=== PATIENT | female | born 1995 | race Caucasian/White ===

== ENCOUNTER 2019-10-16 21:53 | Emergency (ER) | payer OTHER, SELFPAY ==
[2019-10-16 21:59] VITALS: BP 166/84; PULSE 94; RESP 16; TEMP 37; O2SAT 100; BMI 38.3
[2019-10-16 22:01] VITALS: PULSE 90; O2SAT 100
--- NOTE | 2019-10-16 22:15 | ED_ITS ---
HPI - General Chief complaint: OB/Uterine Contractions Stated complaint: miscarriage Time Seen by Provider: 10/16/19 22:15 Source: patient Mode of arrival: Ambulatory Limitations: no limitations History of Present Illness HPI Narrative: 24-year-old at 6 weeks by LMP was in Sunday and had vaginal spotting and mild cramping earlier today. She was seen in the emergency room in Sunday but ultrasound was not available so she came to [place] for further care. She is planning to see Dr. Maravilla for her 1st OB appointment next week. She has otherwise been feeling well without fever, cough, chills, abdominal pain, dysuria or constipation. She notes that she has not had enough bleeding or needed to change her pad for at least the last 4 hours but is noting slightly more pelvic cramps Review of Systems Review of Systems Narrative: Remainder of review of systems including constitutional, ENT, cardiovascular, respiratory, GI, , musculoskeletal, skin, neurologic and psychiatric systems reviewed and are unremarkable except as noted in HPI. Exam Narrative Exam Narrative: General: Healthy appearing, in no acute distress. Able to give a complete and coherent history. Well-nourished well-developed HEENT: Moist mucous membranes, normal sclera with reactive pupils, Respiratory: Lungs are clear to auscultation, no wheezing no rales no rhonchi. Full and symmetrical air movement Cardiac: Regular rate and rhythm no murmurs no bruits Abdomen: Soft nontender good bowel tones, no flank pain Skin: Warm and dry, no rashes Neurologic: Grossly neurologically intact with no obvious asymmetries or abnormalities Psych: Cooperative, appropriate insight and affect Bedside ultrasound shows 2 intrauterine gestational sacs both with heart flicker noted. Upper sac measuring at 6.4 days gestational age and lower sac measuring at 6.3 days gestational age. Initial Vital Signs Initial Vital Signs: Vital Signs Temperature 98.6 F 10/16/19 21:59 Pulse Rate 94 H 10/16/19 21:59 Respiratory Rate 16 10/16/19 21:59 Blood Pressure 166/84 H 10/16/19 21:59 Pulse Oximetry 100 10/16/19 21:59 Course Orders Ordered: ED Orders 10/16/19 22:47 Complete Blood Count AUTO DIFF Stat Comprehensive Metabolic Panel Stat HCG Quantitative /Beta subunit Stat 10/16/19 23:30 Urinalysis and Microscopic Stat Vital Signs Vital signs: Vital Signs - 8 hr 10/16/19 21:59 10/16/19 22:01 10/16/19 22:30 Temperature 98.6 F Pulse Rate 94 H 90 103 H Respiratory Rate 16 Blood Pressure 166/84 H Pulse Oximetry 100 100 100 10/16/19 22:31 10/16/19 23:00 Temperature Pulse Rate 111 H 100 H Respiratory Rate Blood Pressure 137/64 Pulse Oximetry 100 98 MDM - OB/Uterine Contractions Lab Data Attestation: I reviewed the patient's lab results. Result diagrams: 10/16/19 22:47 10/16/19 22:47 Labs: Lab Results 10/16/19 10/16/19 10/16/19 Range/Units 22:47 22:47 22:47 WBC 10.4 (4.5-11.0) X10^3/uL RBC 4.02 (4.0-5.2) X10^6/uL Hgb 12.6 (12.0-16.0) g/dL Hct 36.2 (36-46) % MCV 90.1 (80-100) fL MCH 31.3 (26-34) PG MCHC 34.7 (30-36) % RDW 12.7 (11.6-14.8) % Plt Count 282 (150-400) X10^3/uL Neut % (Auto) 67.6 (50-75) % Lymph % (Auto) 21.5 L (25-40) % [place] % (Auto) 8.9 (3-14) % Eos % (Auto) 1.3 L (2-4) % Baso % (Auto) 0.7 (0-2) % Neut # (Auto) 7000 (6472-1453) /uL Lymph # (Auto) 2200 (0892-2050) /uL [place] # (Auto) 900 (0-900) /uL Eos # (Auto) 100 (0-450) /uL Baso # (Auto) 100 (0-100) /uL Sodium 135 L (137-145) mmol/L Potassium 4.3 (3.4-5.1) mmol/L Chloride 104 (98-107) mmol/L Carbon Dioxide 26 (22-32) mmol/L BUN 9 (7-17) mg/dL Creatinine 0.56 (0.52-1.04) mg/dL Estimated GFR > 60.0 (>60) mL/min BUN/Creatinine Ratio 16.1 (6-22) Glucose 102 H (70-100) mg/dL Calcium 9.2 (8.4-10.2) mg/dL Total Bilirubin 0.5 (0.2-1.3) mg/dL AST 45 H (14-36) IU/L ALT 54 H (<35) IU/L Alkaline Phosphatase 57 (38-126) U/L Total Protein 7.0 (6.3-8.2) g/dL Albumin 4.1 (3.5-5.0) g/dL Globulin 2.9 (1.7-4.1) g/dL Albumin/Globulin Ratio 1.4 (1.0-2.8) HCG, Quant 34000 mIU/mL Urine Color Urine Appearance Urine pH (4.5-8.0) Ur Specific [place] (1.000-1.035) Urine Protein (Negative) Urine Glucose (UA) (Negative) g/dL Urine Ketones (NEGATIVE) Urine Occult Blood (Negative) Urine Nitrate (Negative) Urine Bilirubin (NEGATIVE) Urine Urobilinogen (0.2) E.U./dL Ur Leukocyte Esterase (NEGATIVE) Urine RBC (0-5/HPF) Urine WBC (0-5/HPF) Urine Bacteria (None) Ur Culture Indicated? Micro UA Comment 10/16/19 Range/Units 23:30 WBC (4.5-11.0) X10^3/uL RBC (4.0-5.2) X10^6/uL Hgb (12.0-16.0) g/dL Hct (36-46) % MCV (80-100) fL MCH (26-34) PG MCHC (30-36) % RDW (11.6-14.8) % Plt Count (150-400) X10^3/uL Neut % (Auto) (50-75) % Lymph % (Auto) (25-40) % [place] % (Auto) (3-14) % Eos % (Auto) (2-4) % Baso % (Auto) (0-2) % Neut # (Auto) (6183-2155) /uL Lymph # (Auto) (8787-8545) /uL [place] # (Auto) (0-900) /uL Eos # (Auto) (0-450) /uL Baso # (Auto) (0-100) /uL Sodium (137-145) mmol/L Potassium (3.4-5.1) mmol/L Chloride (98-107) mmol/L Carbon Dioxide (22-32) mmol/L BUN (7-17) mg/dL Creatinine (0.52-1.04) mg/dL Estimated GFR (>60) mL/min BUN/Creatinine Ratio (6-22) Glucose (70-100) mg/dL Calcium (8.4-10.2) mg/dL Total Bilirubin (0.2-1.3) mg/dL AST (14-36) IU/L ALT (<35) IU/L Alkaline Phosphatase (38-126) U/L Total Protein (6.3-8.2) g/dL Albumin (3.5-5.0) g/dL Globulin (1.7-4.1) g/dL Albumin/Globulin Ratio (1.0-2.8) HCG, Quant mIU/mL Urine Color Yellow Urine Appearance Slightly cloudy Urine pH 6.0 (4.5-8.0) Ur Specific [place] 1.025 (1.000-1.035) Urine Protein Negative (Negative) Urine Glucose (UA) Negative (Negative) g/dL Urine Ketones 2+ H (NEGATIVE) Urine Occult Blood 3+ H (Negative) Urine Nitrate Negative (Negative) Urine Bilirubin Negative (NEGATIVE) Urine Urobilinogen 0.2 (0.2) E.U./dL Ur Leukocyte Esterase Negative (NEGATIVE) Urine RBC 1-5/hpf (0-5/HPF) Urine WBC None seen (0-5/HPF) Urine Bacteria Few (2-10) H (None) Ur Culture Indicated? Cult not indicated Micro UA Comment * MDM Narrative Medical decision making narrative: 24-year-old presents with spotting and increasing cramping. Bedside ultrasound suggests two viable fetuses, both intrauterine at 6.3-6.4 weeks. Quantitative hCG is consistent with that picture. Patient is discharged home. Recommended follow-up hCG in 3 days and that she keep her appointment with Dr. Maravilla next week. Need to have a more formal ultrasound with transvaginal probe to confirm presence or absence of two gestati onal sacs. Discharge Plan Departure Patient Disposition: Home Clinical Impression: Threatened Instructions: DI for Threatened Activity Restrictions/Additional Instructions: Thank you for coming in today. Your Blood work was reassuring and the hormone, hCG was appropriately elevated at 13,169. With any bleeding or cramping we always worry about miscarriage however it is also very common to have bleeding and cramping early in her . Is on ultrasound in the emergency department it did appear that there were 2 gestational sacs both with different heartbeats suggesting twins. This will definitely need to be confirmed and I encourage you to keep your formal OB ultrasound scheduled for later today Please follow-up with Dr. Maravilla. I would recommend that you have a repeat hCG test done on October 19 if you are continuing to have bleeding and cramping. I wish you the best Referrals: Verónica Maravilla MD [Physician] -
[2019-10-16 22:30] VITALS: PULSE 103; O2SAT 100
[2019-10-16 22:31] VITALS: BP 137/64; PULSE 111; O2SAT 100
--- NOTE | 2019-10-16 22:56 | PC.NURSE ---
PT states 7 weeks spotting and mild cramping today, was seen at [facility] told to come to ER for US. Denies needing to change pad for past 4 hours and states is nauseated. , has appt with Dr. Maravilla next week.
[2019-10-16 23:00] VITALS: PULSE 100; O2SAT 98
[2019-10-16 23:01] LABS: Add Manual Diff / Slide Review NO; Basophils Absolute Auto 100 /uL (0-100); Basophils Percent Auto 0.7 % (0-2); Eosinophils Absolute Auto 100 /uL (0-450); Eosinophils Percent Auto 1.3 % (2-4); Hematocrit 36.2 % (36-46); Hemoglobin 12.6 g/dL (12.0-16.0); Lymphocytes Absolute Auto 2200 /uL (1100-4500); Lymphocytes Percent Auto 21.5 % (25-40); Mean Corpuscular HGB Conc 34.7 % (30-36); Mean Corpuscular Hemoglobin 31.3 PG (26-34); Mean Corpuscular Volume 90.1 fL (80-100); Monocytes Absolute Auto 900 /uL (0-900); Monocytes Percent Auto 8.9 % (3-14); Neutrophils Absolute Auto 7000 /uL (1500-7000); Neutrophils Percent Auto 67.6 % (50-75); Platelet Count 282 X10^3/uL (150-400); Red Blood Cell Count 4.02 X10^6/uL (4.0-5.2); Red Cell Distribution Width 12.7 % (11.6-14.8); White Blood Cell Count 10.4 X10^3/uL (4.5-11.0)
[2019-10-16 23:28] LABS: Alanine Aminotransferase 54 IU/L (<35); Albumin 4.1 g/dL (3.5-5.0); Albumin Globulin Ratio 1.4 (1.0-2.8); Alkaline Phosphatase 57 U/L (38-126); Aspartate Aminotransferase 45 IU/L (14-36); BUN Creatinine Ratio 16.1 (6-22); Bilirubin Total 0.5 mg/dL (0.2-1.3); Blood Urea Nitrogen 9 mg/dL (7-17); Calcium 9.2 mg/dL (8.4-10.2); Carbon Dioxide 26 mmol/L (22-32); Chloride 104 mmol/L (98-107); Estimated Glomerular Filt Rate > 60.0 mL/min (>60); Globulin 2.9 g/dL (1.7-4.1); Glucose 102 mg/dL (70-100); HEMOLYSIS < 15 (0-50); Potassium 4.3 mmol/L (3.4-5.1); Sodium 135 mmol/L (137-145)
[2019-10-16 23:44] LABS: WBC Urine None Seen (0-5/HPF)
[2019-10-16 23:45] LABS: HCG Quantitative /Beta subunit 13169 mIU/mL
[2019-10-16 23:46] LABS: Bilirubin Urine UA NEGATIVE (NEGATIVE); Color Urine UA YELLOW; Glucose Urine UA NEGATIVE (Negative); Ketones Urine UA 2+ (NEGATIVE); Leukocyte Esterase Urine UA NEGATIVE (NEGATIVE); Nitrite Urine UA NEGATIVE (Negative); Occult Blood Urine UA 3+ (Negative); Protein Urine UA NEGATIVE (Negative); Specific Gravity Urine UA 1.025 (1.000-1.035); Urobilinogen Urine UA 0.2 E.U./dL (0.2)
[2019-10-16 23:53] LABS: Appearance Urine UA Slightly Cloudy
[2019-10-16 23:59] LABS: RBC Urine 1-5/HPF (0-5/HPF)
[2019-10-17] LABS: Bacteria Urine Few (2-10); Culture Indicated Urine Cult Not Indicated
[2019-10-17 00:31] VITALS: BP 132/79; PULSE 90; O2SAT 98
== END 2019-10-17 00:31 | disposition home or self-care (01) ==
PROVIDERS: Emergency Provider Emergency Medicine
DX: O20.0 Threatened abortion (principal); Z3A.01 Less than 8 weeks gestation of pregnancy
CPT/HCPCS: 36415; 80053; 81001; 84702; 85025; 99283

== ENCOUNTER → 2019-10-23 14:04 | Outpatient (CLI) | payer OTHER, SELFPAY ==
[2019-10-23 14:52] LABS: Add Manual Diff / Slide Review NO; Basophils Absolute Auto 0 /uL (0-100); Basophils Percent Auto 0.4 % (0-2); Eosinophils Absolute Auto 100 /uL (0-450); Eosinophils Percent Auto 1.3 % (2-4); Hematocrit 38.2 % (36-46); Hemoglobin 13.2 g/dL (12.0-16.0); Lymphocytes Absolute Auto 1800 /uL (1100-4500); Lymphocytes Percent Auto 18.1 % (25-40); Mean Corpuscular HGB Conc 34.5 % (30-36); Mean Corpuscular Hemoglobin 31.1 PG (26-34); Monocytes Absolute Auto 900 /uL (0-900); Monocytes Percent Auto 9.2 % (3-14); Neutrophils Absolute Auto 7100 /uL (1500-7000); Platelet Count 348 X10^3/uL (150-400); Red Blood Cell Count 4.24 X10^6/uL (4.0-5.2); Red Cell Distribution Width 12.7 % (11.6-14.8)
[2019-10-23 15:14] LABS: Hemoglobin A1C% w Est Avg Glu 5.5 % (4.0-6.0)
[2019-10-23 16:02] LABS: Appearance Urine UA CLEAR; Bilirubin Urine UA NEGATIVE (NEGATIVE); Color Urine UA YELLOW; Glucose Urine UA NEGATIVE (Negative); Ketones Urine UA NEGATIVE (NEGATIVE); Leukocyte Esterase Urine UA NEGATIVE (NEGATIVE); Nitrite Urine UA NEGATIVE (Negative); Occult Blood Urine UA 1+ (Negative); Protein Urine UA NEGATIVE (Negative); Specific Gravity Urine UA 1.015 (1.000-1.035); Urobilinogen Urine UA 0.2 E.U./dL (0.2)
[2019-10-23 16:06] LABS: Bacteria Urine None Seen; RBC Urine None Seen (0-5/HPF); WBC Urine None Seen (0-5/HPF)
[2019-10-23 16:31] LABS: Squamous Epithelial Cell Urine 1-5 /HPF (0-5/HPF)
[2019-10-23 16:43] LABS: HIV 1 & 2 Ab/Ag 4th Gen Combo NEGATIVE (NEGATIVE); Hep C Virus Ab w/Reflex Quant NEGATIVE s/c (NEGATIVE); Hepatitis B Surface Antigen NEGATIVE s/c (NEGATIVE); Rubella Antibody IgG 5.5 IU/mL (>15)
[2019-10-23 17:29] LABS: Urine N gonorrhoeae NOT DETECTED
[2019-10-23 19:10] LABS: Urine Chlamydia NOT DETECTED
[2019-10-24 05:11] LABS: RPR Screen Non Reactive (Non Reactive)
[2019-10-24 11:09] LABS: Varicella IgG Antibody 145 index (Immune >165)
== END ==
PROVIDERS: PCP Specialist; Referring Provider Specialist; Visit Provider Specialist
DX: Z34.01 Encounter for supervision of normal first pregnancy, first trimester (principal); R73.03 Prediabetes; Z11.3 Encounter for screening for infections with a predominantly sexual mode of transmission; Z3A.08 8 weeks gestation of pregnancy
CPT/HCPCS: 36415; 80055; 81003; 81015; 83036; 86787; 86803; 86850; 86900; 86901; 87086; 87389; 87491; 87591

== ENCOUNTER → 2020-01-05 12:29 | Outpatient (CLI) | payer OTHER, SELFPAY ==
[2020-01-07 20:36] LABS: AFP Value 29.6 ng/mL (.); Gest Age on Col Date 17.6 weeks (.); Gestational Age Ultrasound (.); Insulin Dep Diabetes No (.); OSBR Risk 1IN 10000 (.); Results Report (.); Test Results *Screen Negative* (.)
== END ==
PROVIDERS: PCP Nurse Practitioner Family; Referring Provider Specialist; Visit Provider Specialist
DX: Z34.02 Encounter for supervision of normal first pregnancy, second trimester (principal); Z3A.17 17 weeks gestation of pregnancy
CPT/HCPCS: 36415; 82105

== ENCOUNTER → 2020-03-10 15:08 | Outpatient (CLI) | payer OTHER, SELFPAY ==
--- NOTE | 2020-03-10 15:20 | DIET.PN ---
INITIAL GESTATIONAL DIABETES ASSESSMENT ASSESS:? Pt referred for Gestational Diabetes. She is G1, P0. Reports strong family hx of type 2 diabetes including her father, uncle, and grandfather who are all r/t complications of diabetes. Since recent diagnosis, she has been closely monitoring her fasting and 2 hr PP glucose. She endorses previous diet high in carbohydrate, sugar, and candy. She recently started cutting down on her carb intake and using sugar free options in place of sugar sweetened beverages and candies. She has not been exercising, but would like to start walking after work. ? ALEJANDRO:?June 10, 2020 ? WKS GESTATION:?? 27wks ?LABS: 116/207/156/105 ? MEDS: metformin 500mg qd ? DIET:? B: eggs, Kazakh muffin or wheat toast L: sandwich; leftovers D: chick pea pasta, veggies, protein (ckicken, eggs) ? HT:? 67in ? PRE-PREG WT:? 245lb ? PRE-PREG BMI:??? 38.36 ? CURRENT WT: 282lb ? TOTAL WT GAIN:? 37lb EXERCISE: none NUTRITION DX 1. Altered nutrition related lab values r/t gestational diabetes as evidenced by recent labs (OGGT). INTERVENTION 1. Discussed pathophysiology of gestational diabetes and impact of hormone and nutrition/diet on blood sugar control.? Discussed fed versus non-fed state.? 2. Recommended checking fasting, pre-meal and 1hr post prandial (3x/day).? Discussed goals for glycemic control (<95 FBG, <140 1-hr PP).? 3. Discussed the effect of carbohydrates/protein/fat on blood sugar control.? Stressed importance of consistent carbohydrate intake at each meal and provided instructions for recommended servings/portions of carbohydrates/protein per meal.? Provided pt with educational material. 4. Introduced carbohydrate counting and measuring carbohydrate content via servings sizes and reading nutrition labels.? Provided handouts.? Pt will need further review 5. Discussed importance of meal timing and not going >3 hours between meals.? Provided sample meal schedule for pt.? Pt agreeable.?? 6. Discussed importance a pre- vitamin and including food sources of calcium, vitamin D, iron and folic acid for baby and mother?s nutrition support. 7. Discussed caffeine intake. Recommend no more than 200 mg/day (1 cup coffee). 8. Discussed rule of 15 for hypoglycemia. 9. Recommend patient purchase Urine Ketone strips and instructed on use and when to contact provider. 10. Recommended patient continue exercise as appropriate per PCP approval. 11. Patient may need medication management, will follow-up with plan of care at next visit after reviewing glucose results.? MONITOR/EVAL: Follow up scheduled X 3 week. Good compliance expected. Review: carb sources, carb counting, portion size, meal timing, BG log, weight. Today?s visit was done via tele health. 1 hour was spent [id number] by video. Patient consented to receive these services via tele health using the [employer] application. Participants in the tele conference were myself and the patient only. I was located at [facility] and the patient at his/her home.
== END ==
PROVIDERS: PCP Nurse Practitioner Family; Referring Provider Specialist; Visit Provider Nurse Practitioner Family
DX: O24.415 Gestational diabetes mellitus in pregnancy, controlled by oral hypoglycemic drugs (principal); Z3A.27 27 weeks gestation of pregnancy
CPT/HCPCS: G0108

== ENCOUNTER 2020-03-17 17:44 | Observation (INO) | payer OTHER, MEDICAID, SELFPAY ==
--- NOTE | 2020-03-17 18:00 | DI.US.S_ITS ---
PROCEDURE: US OB >= 14 WEEKS FETUS INDICATIONS: c/o headache, cramping OUTSIDE/PRIOR DATING DATA: Last menstrual period (LMP): Unknown. LMP-based estimated date of delivery (ALEJANDRO): Unknown. First dating scan (date and location): 10/23/2019. Estimated date of delivery (ALEJANDRO) from first dating scan: 06/11/2020. TECHNIQUE: Real-time scanning was performed of the fetus, with image documentation and biometric measurements. Endovaginal scanning: Not performed COMPARISON: [facility], , OB <= 14 WEEKS FETUS, 10/23/2019, 13:39. FINDINGS: General: A single living intrauterine gestation is present. Presentation: Transverse. Placenta: Placental position is anterior/fundal, without previa. Amniotic fluid index: 13.2 cm, normal range is 5-24 cm. heart rate: 155 beats per minute. Maternal cervical canal: 4 cm long. Normal lower limit is 2.5 cm. No funneling biometrics: Biparietal diameter: 7.3 cm, 29 weeks 1 day Head circumference: 26.3 cm, 28 weeks 4 days Abdominal circumference: 24.1 cm, 28 weeks 3 days Femur length: 5.3 cm, 28 weeks 1 day Estimated gestational age from initial scan: 27 weeks 5 days Composite gestational age from present scan: 28 weeks 4 days Estimated weight and percentile: 1219 g, 64th percentile Measurement variability for biometric dating: +/- 7 days from 14 weeks to 15 weeks 6 days gestation, +/- 10 days from 16 weeks to 21 weeks 6 days gestation, +/- 2 weeks from 22 weeks to 27 weeks 6 days gestation, +/- 3 weeks for 28 weeks gestation or later. weight reference: 4500 g or EFW >90/95% is considered macrosomia or large for gestational age. EFW <10% is small for gestational age. EFW 5% or less is considered intra-uterine growth restriction. IMPRESSION: 1. Hanna living intrauterine at 28 weeks 4 days based on today's ultrasound. Fetus is in the 64th percentile for weight. Transverse lie. 2. Normal placenta and amniotic fluid. No placental abruption. Dictated by: Pawel Dailey M.D. on 03/17/2020 at 20:02 Approved by: Pawel Dailey M.D. on 03/17/2020 at 20:06
[2020-03-17] MEDS: OXYCODONE/ACETAMINOPHEN 5/325 TABLET 2 TAB PO (18:56)
[2020-03-17 18:58] LABS: Add Manual Diff / Slide Review NO; Basophils Absolute Auto 0 /uL (0-100); Basophils Percent Auto 0.3 % (0-2); Eosinophils Absolute Auto 100 /uL (0-450); Eosinophils Percent Auto 1.1 % (2-4); Hematocrit 34.2 % (36-46); Hemoglobin 11.3 g/dL (12.0-16.0); Lymphocytes Absolute Auto 1900 /uL (1100-4500); Lymphocytes Percent Auto 16.7 % (25-40); Mean Corpuscular HGB Conc 32.9 % (30-36); Mean Corpuscular Hemoglobin 29.7 PG (26-34); Monocytes Absolute Auto 800 /uL (0-900); Monocytes Percent Auto 6.9 % (3-14); Neutrophils Absolute Auto 8300 /uL (1500-7000); Platelet Count 269 X10^3/uL (150-400); Red Cell Distribution Width 13.2 % (11.6-14.8); White Blood Cell Count 11.1 X10^3/uL (4.5-11.0)
[2020-03-17 19:10] LABS: Aspartate Aminotransferase 58 IU/L (14-36); BUN Creatinine Ratio 21.6 (6-22); Blood Urea Nitrogen 8 mg/dL (7-17); Estimated Glomerular Filt Rate > 60.0 mL/min (>60); Uric Acid 4.1 mg/dL (2.5-6.2)
[2020-03-17 20:37] LABS: Protein (Total) Urine Random 13 mg/dL (0-12); Protein Creatinine Ratio Urine 0.61 GRAM/24H
== END 2020-03-17 21:00 | disposition home or self-care (01) ==
PROVIDERS: Admitting Provider Obstetrics & Gynecology; PCP Nurse Practitioner Family; Referring Provider Obstetrics & Gynecology; Visit Provider Obstetrics & Gynecology
DX: O24.415 Gestational diabetes mellitus in pregnancy, controlled by oral hypoglycemic drugs (principal); R51.9 Headache, unspecified; Z3A.27 27 weeks gestation of pregnancy
CPT/HCPCS: 36415; 59050; 76811; 82570; 84156; 84450; 84550; 85025; G0378; G0379

== ENCOUNTER 2020-03-22 11:42 | Observation (INO) | payer OTHER, MEDICAID, SELFPAY ==
[2020-03-22 12:48] LABS: Add Manual Diff / Slide Review NO; Basophils Absolute Auto 100 /uL (0-100); Basophils Percent Auto 0.7 % (0-2); Eosinophils Absolute Auto 100 /uL (0-450); Eosinophils Percent Auto 0.5 % (2-4); Hemoglobin 11.2 g/dL (12.0-16.0); Lymphocytes Absolute Auto 1400 /uL (1100-4500); Lymphocytes Percent Auto 11.9 % (25-40); Mean Corpuscular HGB Conc 34.1 % (30-36); Mean Corpuscular Hemoglobin 30.4 PG (26-34); Mean Corpuscular Volume 89.3 fL (80-100); Monocytes Absolute Auto 700 /uL (0-900); Monocytes Percent Auto 5.8 % (3-14); Neutrophils Absolute Auto 9700 /uL (1500-7000); Neutrophils Percent Auto 81.1 % (50-75); Platelet Count 281 X10^3/uL (150-400); Red Blood Cell Count 3.69 X10^6/uL (4.0-5.2); Red Cell Distribution Width 13.4 % (11.6-14.8)
[2020-03-22 12:57] LABS: Aspartate Aminotransferase 46 IU/L (14-36); BUN Creatinine Ratio 22.9 (6-22); Blood Urea Nitrogen 8 mg/dL (7-17); Estimated Glomerular Filt Rate > 60.0 mL/min (>60); Uric Acid 4.6 mg/dL (2.5-6.2)
[2020-03-22 13:08] LABS: Appearance Urine UA CLEAR; Bilirubin Urine UA NEGATIVE (NEGATIVE); Color Urine UA YELLOW; Glucose Urine UA NEGATIVE (Negative); Ketones Urine UA 2+ (NEGATIVE); Leukocyte Esterase Urine UA NEGATIVE (NEGATIVE); Nitrite Urine UA NEGATIVE (Negative); Occult Blood Urine UA NEGATIVE (Negative); Protein Urine UA NEGATIVE (Negative); Urobilinogen Urine UA 0.2 E.U./dL (0.2)
[2020-03-22 13:12] LABS: pH Urine UA 6.5 (4.5-8.0)
[2020-03-22] MEDS: BUTALB/APAP/CAFFEINE 50/325/40 TABLET 1 EACH PO (13:32)
--- NOTE | 2020-03-22 13:39 | PM.OBTRLD ---
Visit Information Visit Information Date of evaluation: 03/22/20 Primary OB Provider: Verónica Maravilla Reason for Evaluation: Yes other Comments/Additional reasons for admission: Headache possible elevated blood pressure [facility] Medical History (Updated 03/22/20 @ 13:48 by Verónica Maravilla MD) Anxiety Depression Endometriosis GERD (gastroesophageal reflux disease) SHIN (nonalcoholic steatohepatitis) (~06/2019) Ovarian cyst UTI (urinary tract infection) Yeast infection Surgical History (Updated 10/22/19 @ 09:12 by Radha Bob RN) S/P laparoscopic appendectomy (~2012) S/P laparoscopy (~2015) Family History (Updated 10/22/19 @ 09:10 by Radha Bob, JUAN JOSE) Mother Hyperlipidemia Father Hypertension Heart disease Diabetes mellitus Grandmother Hyperlipidemia Grandfather Drug addiction Family estrangement Grandmother Cancer Hypertension Grandfather Heart disease Diabetes mellitus Congestive heart failure Family/Other Heart disease Diabetes mellitus Social History (Updated 10/22/19 @ 08:33 by Radha Bob RN) marital status: household members: spouse lives independently: Yes pets and animals: Yes (X 1 cat and X 1 dog) education level: high school occupational status: employed (Patient access at [employer]) current occupational exposures/hazards: Yes special jose needs: No Smoking Status: Former smoker (Quit 08/05/2018) Tobacco: How many years used: 3 quit status: quit date established second hand exposure: No alcohol intake: former (pre-pregant : social ) substance use type: does not use Review of Systems Review of Systems Narrative: Patient has been having a nonstop headache for over 1 week. She has tried Tylenol, Benadryl, Reglan without any relief. She wakes up with a headache. She denies scotomata. She denies epigastric pain. She had cramping last week but none since then. No bleeding. Baby is moving well. Patient states the pain is behind her eyes and sometimes makes it is difficult for her to focus. She denies any other neurological symptoms. Exam Vital Signs (past 8 hours): Initial blood pressure 130/81. Subsequent blood pressure is 110-123 over 67-72. Pulse 95-110. Temperature 35.9? Narrative Exam Narrative: Abdomen is soft, nontender. No palpable organomegaly other than the uterine enlargement. Patient's legs show trace edema and are nontender. DTRs are normal. Objective Labs Result Diagrams: 03/22/20 12:37 03/22/20 12:37 Labs: Laboratory Results - last 24 hr 03/22/20 03/22/20 03/22/20 12:00 12:37 12:37 WBC 12.0 H RBC 3.69 L Hgb 11.2 L Hct 33.0 L MCV 89.3 MCH 30.4 MCHC 34.1 RDW 13.4 Plt Count 281 Neut % (Auto) 81.1 H Lymph % (Auto) 11.9 L [place] % (Auto) 5.8 Eos % (Auto) 0.5 L Baso % (Auto) 0.7 Neut # (Auto) 9700 H Lymph # (Auto) 1400 [place] # (Auto) 700 Eos # (Auto) 100 Baso # (Auto) 100 BUN 8 Creatinine 0.35 L Estimated GFR > 60.0 BUN/Creatinine Ratio 22.9 H Uric Acid 4.6 AST 46 H Urine Color Yellow Urine Appearance Clear Urine pH 6.5 Ur Specific [place] 1.020 Urine Protein Negative Urine Glucose (UA) Negative Urine Ketones 2+ H Urine Occult Blood Negative Urine Nitrate Negative Urine Bilirubin Negative Urine Urobilinogen 0.2 Ur Leukocyte Esterase Negative Evaluation Evaluation Baseline heart rate: 130 Variability: Moderate (11-25) monitor accelerations: Present monitor decelerations: Absent Contraction Frequency (minutes): 0 Category of Tracing: Reactive Status: Category l Laboratory results: Laboratory Tests 03/22/20 03/22/20 03/22/20 12:00 12:37 12:37 WBC 12.0 H RBC 3.69 L Hgb 11.2 L Hct 33.0 L MCV 89.3 MCH 30.4 MCHC 34.1 RDW 13.4 Plt Count 281 Neut % (Auto) 81.1 H Lymph % (Auto) 11.9 L [place] % (Auto) 5.8 Eos % (Auto) 0.5 L Baso % (Auto) 0.7 Neut # (Auto) 9700 H Lymph # (Auto) 1400 [place] # (Auto) 700 Eos # (Auto) 100 Baso # (Auto) 100 BUN 8 Creatinine 0.35 L Estimated GFR > 60.0 BUN/Creatinine Ratio 22.9 H Uric Acid 4.6 AST 46 H Urine Color Yellow Urine Appearance Clear Urine pH 6.5 Ur Specific [place] 1.020 Urine Protein Negative Urine Glucose (UA) Negative Urine Ketones 2+ H Urine Occult Blood Negative Urine Nitrate Negative Urine Bilirubin Negative Urine Urobilinogen 0.2 Ur Leukocyte Esterase Negative Diagnosis, Plan/Disposition Final Diagnosis (1) Headache around the eyes: Status: Acute (2) 28 weeks gestation of : Status: Acute Plan/Disposition Plan: No obvious evidence for preeclampsia. Headaches may correspond with the patient starting metformin. Patient is to stop the metformin for the next few days to see if her headache disappears. If her headaches go away we could consider insulin instead of metformin OB Disposition: home
== END 2020-03-22 14:10 | disposition home or self-care (01) ==
PROVIDERS: Admitting Provider Specialist; PCP Nurse Practitioner Family; Referring Provider Specialist; Visit Provider Specialist
DX: O24.415 Gestational diabetes mellitus in pregnancy, controlled by oral hypoglycemic drugs (principal); R51.9 Headache, unspecified; Z3A.28 28 weeks gestation of pregnancy
CPT/HCPCS: 36415; 59025; 81003; 84450; 84550; 85025; G0378; G0379

== ENCOUNTER → 2020-03-25 09:58 | Outpatient (CLI) | payer OTHER, MEDICAID, SELFPAY ==
[2020-03-25 10:59] LABS: Add Manual Diff / Slide Review NO; Basophils Absolute Auto 0 /uL (0-100); Basophils Percent Auto 0.3 % (0-2); Eosinophils Absolute Auto 100 /uL (0-450); Eosinophils Percent Auto 0.7 % (2-4); Hematocrit 34.3 % (36-46); Hemoglobin 11.5 g/dL (12.0-16.0); Lymphocytes Absolute Auto 1300 /uL (1100-4500); Lymphocytes Percent Auto 11.6 % (25-40); Mean Corpuscular HGB Conc 33.7 % (30-36); Mean Corpuscular Volume 89.2 fL (80-100); Monocytes Absolute Auto 600 /uL (0-900); Monocytes Percent Auto 5.7 % (3-14); Neutrophils Absolute Auto 9300 /uL (1500-7000); Neutrophils Percent Auto 81.7 % (50-75); Platelet Count 312 X10^3/uL (150-400); Red Blood Cell Count 3.84 X10^6/uL (4.0-5.2); Red Cell Distribution Width 13.1 % (11.6-14.8); White Blood Cell Count 11.3 X10^3/uL (4.5-11.0)
[2020-03-25 11:11] LABS: Alanine Aminotransferase 48 IU/L (<35); Aspartate Aminotransferase 64 IU/L (14-36); BUN Creatinine Ratio 18.4 (6-22); Blood Urea Nitrogen 7 mg/dL (7-17); Estimated Glomerular Filt Rate > 60.0 mL/min (>60); Uric Acid 4.7 mg/dL (2.5-6.2)
== END ==
PROVIDERS: PCP Nurse Practitioner Family; Referring Provider Specialist; Visit Provider Specialist
DX: O16.3 Unspecified maternal hypertension, third trimester (principal)
CPT/HCPCS: 36415; 82565; 84450; 84460; 84520; 84550; 85025

== ENCOUNTER 2020-03-25 13:20 | Outpatient (CLI) | payer OTHER, MEDICAID, SELFPAY ==
--- NOTE | 2020-03-25 13:29 | P.TNLD_ITS ---
Visit Information Visit Information Date of evaluation: 03/25/20 Primary OB Provider: Verónica Maravilla Reason for Evaluation: Yes other Comments/Additional reasons for admission: Betamethasone shot for preeclampsia [facility] Medical History (Updated 03/25/20 @ 13:31 by Verónica Maravilla MD) Anxiety Depression Endometriosis GERD (gastroesophageal reflux disease) SHIN (nonalcoholic steatohepatitis) (~06/2019) Ovarian cyst UTI (urinary tract infection) Yeast infection Surgical History (Updated 10/22/19 @ 09:12 by Radha Bob, RN) S/P laparoscopic appendectomy (~2012) S/P laparoscopy (~2015) Family History (Updated 10/22/19 @ 09:10 by Radha Bob, JUAN JOSE) Mother Hyperlipidemia Father Hypertension Heart disease Diabetes mellitus Grandmother Hyperlipidemia Grandfather Drug addiction Family estrangement Grandmother Cancer Hypertension Grandfather Heart disease Diabetes mellitus Congestive heart failure Family/Other Heart disease Diabetes mellitus Social History (Updated 10/22/19 @ 08:33 by Radha Bob, JUAN JOSE) marital status: household members: spouse lives independently: Yes pets and animals: Yes (X 1 cat and X 1 dog) education level: high school occupational status: employed (Patient access at [employer]) current occupational exposures/hazards: Yes special jose needs: No Smoking Status: Former smoker (Quit 08/05/2018) Tobacco: How many years used: 3 quit status: quit date established second hand exposure: No alcohol intake: former (pre-pregant : social ) substance use type: does not use Diagnosis, Plan/Disposition Final Diagnosis (1) Preeclampsia: Status: Acute Plan/Disposition Plan: Patient with evidence of early preeclampsia. Discussed with perinatologist at who recommended patient be admitted, transported to the [facility]. Patient to receive betamethasone now. OB Disposition: other (Patient offered admission, ambulance transfer. They are requesting discharge and they will drive to the [facility].)
[2020-03-25] MEDS: BETAMETHASONE 30 MG/5 ML MDV 12 MG IM (13:51)
== END 2020-03-25 14:00 | disposition home or self-care (01) ==
LOC: LABOR 14:07 → OB 03-26 09:22
PROVIDERS: PCP Nurse Practitioner Family; Referring Provider Specialist; Visit Provider Specialist
DX: O14.93 Unspecified pre-eclampsia, third trimester (principal); O24.415 Gestational diabetes mellitus in pregnancy, controlled by oral hypoglycemic drugs; Z3A.29 29 weeks gestation of pregnancy
CPT/HCPCS: 36415; 59025; 82565; 84450; 84460; 84520; 84550; 85025; 96372; G0378; G0379; J0702

== ENCOUNTER → 2020-03-31 09:44 | Outpatient (CLI) | payer OTHER, MEDICAID, SELFPAY ==
--- NOTE | 2020-03-31 09:46 | DIET.PN ---
Gestational Diabetes Follow Up ? ASSESS:? Ms. Hinton is a 24 yof seen for GDM follow up. She reports recent 5 day admission to for altered labs. She has been having increasing blood pressure with headaches and was thought to have preeclampsia. She has hx of fatty liver. She reports changes in appetite during this time with weight loss. She has continued to monitor her blood glucose and reports ranges WNL. ? LABS: FBG: <95 1 hr PP:??<140 ? Weight: 277lb (down 5lb) ?? NUTRITION Dx? 1. Altered nutrition related labs r/t gestational diabetes aeb recent labs (OGGT). ? INTERVENTION? 1. Reviewed blood sugar log and implications/reasons for elevated/decreased blood sugar.? Pt with good understanding.? 2. Reviewed carbohydrate counting and importance of consistent carbohydrate intake.? 3. Reviewed meal intake and importance of balanced meals. 4. Discussed evening snacks ideas. Recommended avoiding milk and fruit after dinner to help with elevated FBG. 5. Recommended pt avoid processed foods as much as possible and aim to get most nutrients from refrigerated options. 6. Discussed possible need for increased medication management if >80% of fasting and post-prandial readings are not within recommended values (FBG<95, 1 hr PP <140). Pt agreeable. ? MONITOR/EVALUATE: Pt receptive to information provided.? Will schedule follow up as needed. Patient will call if blood glucose is not in range. Today?s visit was done via tele health. 30 min was spent [id number] by video. Patient consented to receive these services via tele health using the [employer] application. Participants in the tele conference were myself and the patient only. I was located at [facility] and the patient at his/her home.
== END ==
PROVIDERS: PCP Nurse Practitioner Family; Referring Provider Specialist; Visit Provider Nurse Practitioner Family
DX: E11.9 Type 2 diabetes mellitus without complications (principal)
CPT/HCPCS: G0108

== ENCOUNTER 2020-04-14 15:06 | Outpatient (CLI) | payer OTHER, MEDICAID, SELFPAY ==
--- NOTE | 2020-04-14 15:43 | P.TNLD_ITS ---
Visit Information Visit Information Date of evaluation: 04/14/20 Primary OB Provider: Verónica Maravilla Reason for Evaluation: Yes non-stress test non-stress test reason: diabetes and hypertension/pre-eclampsia Vital Signs Vital Signs: Blood pressure 120/80 [facility] Medical History (Updated 04/14/20 @ 15:46 by Verónica Maravilla MD) 31 weeks gestation of Anxiety Depression Endometriosis GERD (gastroesophageal reflux disease) SHIN (nonalcoholic steatohepatitis) (~06/2019) Ovarian cyst UTI (urinary tract infection) Yeast infection Surgical History (Updated 10/22/19 @ 09:12 by Radha Bob, RN) S/P laparoscopic appendectomy (~2012) S/P laparoscopy (~2015) Family History (Updated 10/22/19 @ 09:10 by Radha Bob, JUAN JOSE) Mother Hyperlipidemia Father Hypertension Heart disease Diabetes mellitus Grandmother Hyperlipidemia Grandfather Drug addiction Family estrangement Grandmother Cancer Hypertension Grandfather Heart disease Diabetes mellitus Congestive heart failure Family/Other Heart disease Diabetes mellitus Social History (Updated 10/22/19 @ 08:33 by Radha Bob, RN) marital status: household members: spouse lives independently: Yes pets and animals: Yes (X 1 cat and X 1 dog) education level: high school occupational status: employed (Patient access at [employer]) current occupational exposures/hazards: Yes special jose needs: No Smoking Status: Former smoker (Quit 08/05/2018) Tobacco: How many years used: 3 quit status: quit date established second hand exposure: No alcohol intake: former (pre-pregant : social ) substance use type: does not use Evaluation Evaluation Baseline heart rate: 135 Variability: Moderate (11-25) monitor accelerations: Present monitor decelerations: Absent Contraction Frequency (minutes): 0 Category of Tracing: Reactive Status: Category l Diagnosis, Plan/Disposition Final Diagnosis (1) Hypertension affecting in third trimester: Status: Acute (2) Gestational diabetes: Status: Acute (3) 31 weeks gestation of : Status: Acute Plan/Disposition Plan: Reactive nonstress test. Patient to get twice weekly nonstress tests OB Disposition: home
== END 2020-04-14 15:50 | disposition home or self-care (01) ==
LOC: OB 04-15 07:17
PROVIDERS: PCP Nurse Practitioner Family; Referring Provider Specialist; Visit Provider Specialist
DX: O13.3 Gestational [pregnancy-induced] hypertension without significant proteinuria, third trimester (principal); O24.419 Gestational diabetes mellitus in pregnancy, unspecified control; Z3A.31 31 weeks gestation of pregnancy
CPT/HCPCS: 59025; G0378; G0379

== ENCOUNTER 2020-04-18 10:04 | Outpatient (CLI) | payer OTHER, MEDICAID, SELFPAY ==
--- NOTE | 2020-04-18 10:57 | P.TNLD_ITS ---
Visit Information Visit Information Date of evaluation: 04/18/20 Primary OB Provider: Verónica Maravilla On-call OB Provider: Starr Harvey Reason for Evaluation: Yes non-stress test Comments/Additional reasons for admission: Scheduled NST for GDMA2 and gHTN, no obstetrical or PIH complaints. Vital Signs Vital Signs: 126/60 [facility] Medical History 31 weeks gestation of Anxiety Depression Endometriosis GERD (gastroesophageal reflux disease) SHIN (nonalcoholic steatohepatitis) (~06/2019) Ovarian cyst UTI (urinary tract infection) Yeast infection Surgical History S/P laparoscopic appendectomy (~2012) S/P laparoscopy (~2015) Family History Mother Hyperlipidemia Father Hypertension Heart disease Diabetes mellitus Grandmother Hyperlipidemia Grandfather Drug addiction Family estrangement Grandmother Cancer Hypertension Grandfather Heart disease Diabetes mellitus Congestive heart failure Family/Other Heart disease Diabetes mellitus Social History marital status: household members: spouse lives independently: Yes pets and animals: Yes (X 1 cat and X 1 dog) education level: high school occupational status: employed (Patient access at [employer]) current occupational exposures/hazards: Yes special jose needs: No Smoking Status: Former smoker (Quit 08/05/2018) Tobacco: How many years used: 3 quit status: quit date established second hand exposure: No alcohol intake: former (pre-pregant : social ) substance use type: does not use Review of Systems Constitutional Constitutional: Reports system reviewed and no additional complaints, except as documented Evaluation Evaluation Baseline heart rate: 140 Variability: Moderate (11-25) monitor accelerations: Present monitor decelerations: Absent Status: Category l Diagnosis, Plan/Disposition Plan/Disposition Plan: Home with routine precautions and scheduled follow up in 48 hours. OB Disposition: home
== END 2020-04-18 11:00 | disposition home or self-care (01) ==
LOC: OB 04-19 09:17
PROVIDERS: PCP Nurse Practitioner Family; Referring Provider Obstetrics & Gynecology; Visit Provider Obstetrics & Gynecology
DX: O24.419 Gestational diabetes mellitus in pregnancy, unspecified control (principal); O13.3 Gestational [pregnancy-induced] hypertension without significant proteinuria, third trimester; Z3A.32 32 weeks gestation of pregnancy
CPT/HCPCS: 59025; G0378; G0379

== ENCOUNTER → 2020-04-20 11:14 | Outpatient (CLI) | payer OTHER, MEDICAID, SELFPAY ==
[2020-04-20 12:32] LABS: Add Manual Diff / Slide Review NO; Basophils Absolute Auto 0 /uL (0-100); Basophils Percent Auto 0.2 % (0-2); Eosinophils Absolute Auto 100 /uL (0-450); Eosinophils Percent Auto 0.8 % (2-4); Hematocrit 33.6 % (36-46); Hemoglobin 11.4 g/dL (12.0-16.0); Lymphocytes Absolute Auto 1400 /uL (1100-4500); Lymphocytes Percent Auto 13.5 % (25-40); Mean Corpuscular Volume 88.2 fL (80-100); Monocytes Absolute Auto 700 /uL (0-900); Monocytes Percent Auto 6.3 % (3-14); Neutrophils Absolute Auto 8300 /uL (1500-7000); Neutrophils Percent Auto 79.2 % (50-75); Platelet Count 252 X10^3/uL (150-400); Red Blood Cell Count 3.81 X10^6/uL (4.0-5.2); Red Cell Distribution Width 13.6 % (11.6-14.8); White Blood Cell Count 10.5 X10^3/uL (4.5-11.0)
[2020-04-20 12:47] LABS: Alanine Aminotransferase 37 IU/L (<35); Albumin 3.7 g/dL (3.5-5.0); Albumin Globulin Ratio 1.2 (1.0-2.8); Alkaline Phosphatase 115 U/L (38-126); Aspartate Aminotransferase 42 IU/L (14-36); BUN Creatinine Ratio 23.1 (6-22); Bilirubin Total 0.2 mg/dL (0.2-1.3); Blood Urea Nitrogen 9 mg/dL (7-17); Calcium 9.7 mg/dL (8.4-10.2); Carbon Dioxide 20 mmol/L (22-32); Chloride 104 mmol/L (98-107); Estimated Glomerular Filt Rate > 60.0 mL/min (>60); Globulin 3.2 g/dL (1.7-4.1); Glucose 112 mg/dL (70-100); HEMOLYSIS < 15 (0-50); Potassium 3.9 mmol/L (3.4-5.1); Sodium 134 mmol/L (137-145); Total Protein 6.9 g/dL (6.3-8.2)
== END ==
PROVIDERS: PCP Nurse Practitioner Family; Referring Provider Specialist; Visit Provider Specialist
DX: O16.3 Unspecified maternal hypertension, third trimester (principal)
CPT/HCPCS: 36415; 80053; 85025

== ENCOUNTER 2020-04-20 11:46 | Outpatient (CLI) | payer OTHER, MEDICAID, SELFPAY ==
--- NOTE | 2020-04-20 12:11 | PM.OBTRLD ---
Visit Information Visit Information Date of evaluation: 04/20/20 Primary OB Provider: Verónica Maravilla Reason for Evaluation: Yes non-stress test non-stress test reason: hypertension/pre-eclampsia Vital Signs Vital Signs: Blood pressure 132/86, pulse 98, temperature 36.5? [facility] Medical History (Updated 04/20/20 @ 11:13 by Verónica Maravilla MD) Anxiety Depression Endometriosis GERD (gastroesophageal reflux disease) SHIN (nonalcoholic steatohepatitis) (~06/2019) Ovarian cyst UTI (urinary tract infection) Yeast infection Surgical History S/P laparoscopic appendectomy (~2012) S/P laparoscopy (~2015) Family History Mother Hyperlipidemia Father Hypertension Heart disease Diabetes mellitus Grandmother Hyperlipidemia Grandfather Drug addiction Family estrangement Grandmother Cancer Hypertension Grandfather Heart disease Diabetes mellitus Congestive heart failure Family/Other Heart disease Diabetes mellitus Social History marital status: household members: spouse lives independently: Yes pets and animals: Yes (X 1 cat and X 1 dog) education level: high school occupational status: employed (Patient access at [employer]) current occupational exposures/hazards: Yes special jose needs: No Smoking Status: Former smoker (Quit 08/05/2018) Tobacco: How many years used: 3 quit status: quit date established second hand exposure: No alcohol intake: former (pre-pregant : social ) substance use type: does not use Evaluation Evaluation Baseline heart rate: 130 Variability: Moderate (11-25) monitor accelerations: Present monitor decelerations: Absent Contraction Frequency (minutes): 0 Category of Tracing: Reactive Status: Category l Diagnosis, Plan/Disposition Final Diagnosis (1) 32 weeks gestation of : Status: Acute (2) Hypertension affecting in third trimester: Status: Acute (3) Gestational diabetes: Status: Acute Plan/Disposition Plan: Reactive nonstress test. Continue twice weekly nonstress test. Patient is to get her blood drawn today for CBC and CMP OB Disposition: home
== END 2020-04-20 12:20 | disposition home or self-care (01) ==
LOC: LABOR 11:57 → OB 04-21 15:01
PROVIDERS: PCP Nurse Practitioner Family; Referring Provider Specialist; Visit Provider Specialist
DX: O13.3 Gestational [pregnancy-induced] hypertension without significant proteinuria, third trimester (principal); O24.415 Gestational diabetes mellitus in pregnancy, controlled by oral hypoglycemic drugs; Z3A.32 32 weeks gestation of pregnancy
CPT/HCPCS: 36415; 59025; 80053; 85025; G0378; G0379

== ENCOUNTER 2020-04-24 10:04 | Outpatient (CLI) | payer OTHER, MEDICAID, SELFPAY ==
--- NOTE | 2020-04-24 11:17 | PM.OBTRLD ---
Visit Information Visit Information Date of evaluation: 04/24/20 Primary OB Provider: Verónica Maravilla On-call OB Provider: Jacqui Aj Reason for Evaluation: Yes non-stress test non-stress test reason: hypertension/pre-eclampsia Vital Signs Vital Signs: Temperature 36.4? Blood pressure 132/92 heart rate 107 Blood pressure 137/74 heart rate 100 Blood pressure 132/76 heart rate 98 PFSH Medical History Anxiety Depression Endometriosis GERD (gastroesophageal reflux disease) SHIN (nonalcoholic steatohepatitis) (~06/2019) Ovarian cyst UTI (urinary tract infection) Yeast infection Surgical History S/P laparoscopic appendectomy (~2012) S/P laparoscopy (~2015) Family History Mother Hyperlipidemia Father Hypertension Heart disease Diabetes mellitus Grandmother Hyperlipidemia Grandfather Drug addiction Family estrangement Grandmother Cancer Hypertension Grandfather Heart disease Diabetes mellitus Congestive heart failure Family/Other Heart disease Diabetes mellitus Social History marital status: household members: spouse lives independently: Yes pets and animals: Yes (X 1 cat and X 1 dog) education level: high school occupational status: employed (Patient access at [email or web address]) current occupational exposures/hazards: Yes special jose needs: No Smoking Status: Former smoker (Quit 08/05/2018) Tobacco: How many years used: 3 quit status: quit date established second hand exposure: No alcohol intake: former (pre-pregant : social ) substance use type: does not use Evaluation Evaluation Baseline heart rate: 130 Variability: Moderate (11-25) monitor accelerations: Present monitor decelerations: Absent Category of Tracing: Reactive Diagnosis, Plan/Disposition Final Diagnosis (1) 32 weeks gestation of : Status: Acute (2) Hypertension affecting in third trimester: Status: Acute (3) Gestational diabetes: Status: Acute Plan/Disposition Plan: 24-year-old at 33 weeks and 2 days gestation with gestational hypertension as well as gestational diabetes here for NST. Patient has no complaints. Initial blood pressure was mildly elevated however 2 subsequent blood pressures were normal. NST reactive. Follow-up as scheduled with Dr. Maravilla. OB Disposition: home
== END 2020-04-24 10:50 | disposition home or self-care (01) ==
LOC: OB 04-26 07:33
PROVIDERS: PCP Nurse Practitioner Family; Referring Provider Specialist; Visit Provider Specialist
DX: O13.3 Gestational [pregnancy-induced] hypertension without significant proteinuria, third trimester (principal); O24.415 Gestational diabetes mellitus in pregnancy, controlled by oral hypoglycemic drugs; Z3A.32 32 weeks gestation of pregnancy
CPT/HCPCS: 59025; G0378; G0379

== ENCOUNTER 2020-04-27 10:50 | Outpatient (CLI) | payer OTHER, MEDICAID, SELFPAY ==
--- NOTE | 2020-04-27 11:26 | PM.OBTRLD ---
Visit Information Visit Information Date of evaluation: 04/27/20 Primary OB Provider: Verónica Maravilla Reason for Evaluation: Yes non-stress test non-stress test reason: diabetes and hypertension/pre-eclampsia Vital Signs Vital Signs: Blood pressure 122/73 to 116/71, pulse of 96, temperature 36.7? [facility] Medical History Anxiety Depression Endometriosis GERD (gastroesophageal reflux disease) SHIN (nonalcoholic steatohepatitis) (~06/2019) Ovarian cyst UTI (urinary tract infection) Yeast infection Surgical History S/P laparoscopic appendectomy (~2012) S/P laparoscopy (~2015) Family History Mother Hyperlipidemia Father Hypertension Heart disease Diabetes mellitus Grandmother Hyperlipidemia Grandfather Drug addiction Family estrangement Grandmother Cancer Hypertension Grandfather Heart disease Diabetes mellitus Congestive heart failure Family/Other Heart disease Diabetes mellitus Social History marital status: household members: spouse lives independently: Yes pets and animals: Yes (X 1 cat and X 1 dog) education level: high school occupational status: employed (Patient access at [employer]) current occupational exposures/hazards: Yes special jose needs: No Smoking Status: Former smoker (Quit 08/05/2018) Tobacco: How many years used: 3 quit status: quit date established second hand exposure: No alcohol intake: former (pre-pregant : social ) substance use type: does not use Evaluation Evaluation Baseline heart rate: 140 Variability: Moderate (11-25) monitor accelerations: Present monitor decelerations: Absent Contraction Frequency (minutes): 0 Category of Tracing: Reactive Status: Category l Diagnosis, Plan/Disposition Final Diagnosis (1) Gestational diabetes: Status: Acute (2) Hypertension affecting in third trimester: Status: Acute Plan/Disposition Plan: Continue weekly evaluation. OB Disposition: home
== END 2020-04-27 11:30 | disposition home or self-care (01) ==
LOC: OB 04-28 07:29
PROVIDERS: PCP Nurse Practitioner Family; Referring Provider Specialist; Visit Provider Specialist
DX: O24.415 Gestational diabetes mellitus in pregnancy, controlled by oral hypoglycemic drugs (principal); O13.3 Gestational [pregnancy-induced] hypertension without significant proteinuria, third trimester; Z3A.33 33 weeks gestation of pregnancy
CPT/HCPCS: 59025; G0378; G0379

== ENCOUNTER 2020-05-04 10:51 | Outpatient (CLI) | payer OTHER, MEDICAID, SELFPAY ==
--- NOTE | 2020-05-04 11:22 | P.TNLD_ITS ---
Visit Information Visit Information Date of evaluation: 05/04/20 Primary OB Provider: Verónica Maravilla Reason for Evaluation: Yes non-stress test non-stress test reason: diabetes and hypertension/pre-eclampsia Vital Signs Vital Signs: Blood pressure 132/78, pulse of 92, temperature 36.4? [facility] Medical History Anxiety Depression Endometriosis GERD (gastroesophageal reflux disease) SHIN (nonalcoholic steatohepatitis) (~06/2019) Ovarian cyst UTI (urinary tract infection) Yeast infection Surgical History S/P laparoscopic appendectomy (~2012) S/P laparoscopy (~2015) Family History Mother Hyperlipidemia Father Hypertension Heart disease Diabetes mellitus Grandmother Hyperlipidemia Grandfather Drug addiction Family estrangement Grandmother Cancer Hypertension Grandfather Heart disease Diabetes mellitus Congestive heart failure Family/Other Heart disease Diabetes mellitus Social History marital status: household members: spouse lives independently: Yes pets and animals: Yes (X 1 cat and X 1 dog) education level: high school occupational status: employed (Patient access at [employer]) current occupational exposures/hazards: Yes special jose needs: No Smoking Status: Former smoker (Quit 08/05/2018) Tobacco: How many years used: 3 quit status: quit date established second hand exposure: No alcohol intake: former (pre-pregant : social ) substance use type: does not use Evaluation Evaluation Baseline heart rate: 135 Variability: Moderate (11-25) monitor accelerations: Present monitor decelerations: Absent Contraction Frequency (minutes): 0 Category of Tracing: Reactive Status: Category l Diagnosis, Plan/Disposition Final Diagnosis (1) Hypertension affecting in third trimester: Status: Acute (2) Gestational diabetes: Status: Acute (3) 34 weeks gestation of : Status: Acute Plan/Disposition Plan: Patient with reactive nonstress test. Doing twice weekly NSTs and weekly LALA. OB Disposition: home
== END 2020-05-04 11:28 | disposition home or self-care (01) ==
LOC: LABOR 10:54 → OB 05-05 07:10
PROVIDERS: PCP Nurse Practitioner Family; Referring Provider Specialist; Visit Provider Specialist
DX: O13.3 Gestational [pregnancy-induced] hypertension without significant proteinuria, third trimester (principal); O24.419 Gestational diabetes mellitus in pregnancy, unspecified control; Z3A.34 34 weeks gestation of pregnancy
CPT/HCPCS: 59025; G0378; G0379

== ENCOUNTER 2020-05-08 10:04 | Outpatient (CLI) | payer OTHER, MEDICAID, SELFPAY ==
--- NOTE | 2020-05-08 10:24 | P.TNLD_ITS ---
Visit Information Visit Information Date of evaluation: 05/08/20 Primary OB Provider: Verónica Maravilla On-call OB Provider: Jacqui Aj Reason for Evaluation: Yes non-stress test non-stress test reason: diabetes and hypertension/pre-eclampsia Vital Signs Vital Signs: Temperature 36.4? blood pressure 121/75 heart rate 97 PFSH Medical History Anxiety Depression Endometriosis GERD (gastroesophageal reflux disease) SHIN (nonalcoholic steatohepatitis) (~06/2019) Ovarian cyst UTI (urinary tract infection) Yeast infection Surgical History S/P laparoscopic appendectomy (~2012) S/P laparoscopy (~2015) Family History Mother Hyperlipidemia Father Hypertension Heart disease Diabetes mellitus Grandmother Hyperlipidemia Grandfather Drug addiction Family estrangement Grandmother Cancer Hypertension Grandfather Heart disease Diabetes mellitus Congestive heart failure Family/Other Heart disease Diabetes mellitus Social History marital status: household members: spouse lives independently: Yes pets and animals: Yes (X 1 cat and X 1 dog) education level: high school occupational status: employed (Patient access at [employer]) current occupational exposures/hazards: Yes special jose needs: No Smoking Status: Former smoker (Quit 08/05/2018) Tobacco: How many years used: 3 quit status: quit date established second hand exposure: No alcohol intake: former (pre-pregant : social ) substance use type: does not use Evaluation Evaluation Baseline heart rate: 130 Variability: Moderate (11-25) monitor accelerations: Present monitor decelerations: Absent Category of Tracing: Reactive Diagnosis, Plan/Disposition Final Diagnosis (1) Hypertension affecting in third trimester: Status: Acute (2) Gestational diabetes: Status: Acute Plan/Disposition Plan: 24-year-old at 35 gestation with gestational hypertension as well as gestational diabetes here for NST. NST reactive. Follow-up with Dr. Maravilla as scheduled. OB Disposition: home
== END 2020-05-08 10:44 | disposition home or self-care (01) ==
LOC: OB 05-10 06:58
PROVIDERS: PCP Nurse Practitioner Family; Referring Provider Family Medicine; Visit Provider Family Medicine
DX: O24.419 Gestational diabetes mellitus in pregnancy, unspecified control (principal); O13.3 Gestational [pregnancy-induced] hypertension without significant proteinuria, third trimester; Z3A.35 35 weeks gestation of pregnancy
CPT/HCPCS: 59025; G0378; G0379

== ENCOUNTER 2020-05-10 14:27 | Observation (INO) | payer OTHER, MEDICAID, SELFPAY ==
[2020-05-10 15:12] LABS: Appearance Urine UA CLEAR; Bilirubin Urine UA NEGATIVE (NEGATIVE); Color Urine UA YELLOW; Glucose Urine UA TRACE g/dL (Negative); Ketones Urine UA TRACE (NEGATIVE); Leukocyte Esterase Urine UA NEGATIVE (NEGATIVE); Nitrite Urine UA NEGATIVE (Negative); Occult Blood Urine UA NEGATIVE (Negative); Protein Urine UA NEGATIVE (Negative); Specific Gravity Urine UA 1.015 (1.000-1.035); Urobilinogen Urine UA 0.2 E.U./dL (0.2)
--- NOTE | 2020-05-10 16:06 | PM.OBTRLD ---
Visit Information Visit Information Date of evaluation: 05/10/20 Primary OB Provider: Verónica Maravilla Reason for Evaluation: Yes pre-term labor [facility] Medical History Anxiety Depression Endometriosis GERD (gastroesophageal reflux disease) SHIN (nonalcoholic steatohepatitis) (~06/2019) Ovarian cyst UTI (urinary tract infection) Yeast infection Surgical History S/P laparoscopic appendectomy (~2012) S/P laparoscopy (~2015) Family History Mother Hyperlipidemia Father Hypertension Heart disease Diabetes mellitus Grandmother Hyperlipidemia Grandfather Drug addiction Family estrangement Grandmother Cancer Hypertension Grandfather Heart disease Diabetes mellitus Congestive heart failure Family/Other Heart disease Diabetes mellitus Social History marital status: household members: spouse lives independently: Yes pets and animals: Yes (X 1 cat and X 1 dog) education level: high school occupational status: employed (Patient access at [employer]) current occupational exposures/hazards: Yes special jose needs: No Smoking Status: Former smoker (Quit 08/05/2018) Tobacco: How many years used: 3 quit status: quit date established second hand exposure: No alcohol intake: former (pre-pregant : social ) substance use type: does not use Review of Systems Review of Systems Narrative: Patient started having contractions every 3-5 minutes at 6 am. They began to decrease in frequency and have now stopped. No leakage of fluid. No change in vaginal discharge. No BRUNO/ scotomata/ epigastric pain. Pt does c/o swelling. GFM. ROS: Yes All systems reviewed with the patient and are negative except as otherwise documented Exam Vital Signs (past 8 hours): BP 121/80, P88, afebrile Narrative Exam Narrative: Abdomen soft, NT. US baby Breech, GFM, tone, breathing . LALA 17.2 Objective Labs Labs: Laboratory Results - last 24 hr 05/10/20 14:45 Urine Color Yellow Urine Appearance Clear Urine pH 6.0 Ur Specific Moran 1.015 Urine Protein Negative Urine Glucose (UA) Trace H Urine Ketones Trace H Urine Occult Blood Negative Urine Nitrate Negative Urine Bilirubin Negative Urine Urobilinogen 0.2 Ur Leukocyte Esterase Negative Evaluation Evaluation Baseline heart rate: 150 Variability: Moderate (11-25) monitor accelerations: Present monitor decelerations: Absent Contraction Frequency (minutes): 0 Category of Tracing: Reactive Status: Category l Laboratory results: Laboratory Tests 05/10/20 14:45 Urine Color Yellow Urine Appearance Clear Urine pH 6.0 Ur Specific Moran 1.015 Urine Protein Negative Urine Glucose (UA) Trace H Urine Ketones Trace H Urine Occult Blood Negative Urine Nitrate Negative Urine Bilirubin Negative Urine Urobilinogen 0.2 Ur Leukocyte Esterase Negative Diagnosis, Plan/Disposition Final Diagnosis (1) False labor before 37 completed weeks of gestation: Status: Acute (2) 35 weeks gestation of : Status: Acute Plan/Disposition Plan: Keep next OB appointment in 1 week. Routine precautions reviewed. OB Disposition: home
== END 2020-05-10 16:29 | disposition home or self-care (01) ==
PROVIDERS: Admitting Provider Specialist; PCP Nurse Practitioner Family; Referring Provider Specialist; Visit Provider Specialist
DX: O24.419 Gestational diabetes mellitus in pregnancy, unspecified control (principal); O47.03 False labor before 37 completed weeks of gestation, third trimester; O13.3 Gestational [pregnancy-induced] hypertension without significant proteinuria, third trimester; Z3A.35 35 weeks gestation of pregnancy
CPT/HCPCS: 59025; 81003; G0378; G0379

== ENCOUNTER 2020-05-15 10:03 | Outpatient (CLI) | payer OTHER, MEDICAID, SELFPAY ==
--- NOTE | 2020-05-15 13:27 | PM.OBTRLD ---
Visit Information Visit Information Date of evaluation: 05/15/20 Primary OB Provider: Verónica Maravilla On-call OB Provider: Kerri Cook Reason for Evaluation: Yes non-stress test non-stress test reason: diabetes and hypertension/pre-eclampsia [facility] Medical History Anxiety Depression Endometriosis GERD (gastroesophageal reflux disease) SHIN (nonalcoholic steatohepatitis) (~06/2019) Ovarian cyst UTI (urinary tract infection) Yeast infection Surgical History S/P laparoscopic appendectomy (~2012) S/P laparoscopy (~2015) Family History Mother Hyperlipidemia Father Hypertension Heart disease Diabetes mellitus Grandmother Hyperlipidemia Grandfather Drug addiction Family estrangement Grandmother Cancer Hypertension Grandfather Heart disease Diabetes mellitus Congestive heart failure Family/Other Heart disease Diabetes mellitus Social History marital status: household members: spouse lives independently: Yes pets and animals: Yes (X 1 cat and X 1 dog) education level: high school occupational status: employed (Patient access at [employer]) current occupational exposures/hazards: Yes special jose needs: No Smoking Status: Former smoker (Quit 08/05/2018) Tobacco: How many years used: 3 quit status: quit date established second hand exposure: No alcohol intake: former (pre-pregant : social ) substance use type: does not use Evaluation Evaluation Baseline heart rate: 140 Variability: Moderate (11-25) monitor accelerations: Present monitor decelerations: Absent Contraction Frequency (minutes): 8 Uterine Contraction Intensity: Mild Category of Tracing: Reactive Diagnosis, Plan/Disposition Plan/Disposition Plan: Assessment: 24-year-old 1 para 0 with gestational diabetes on metformin, and gestational hypertension Thirty-six and 2 7th weeks gestation Breech presentation Reactive nonstress test Plan: Discharged to home kick counts discussed Follow-up as scheduled with Dr. Maravilla OB Disposition: home
== END 2020-05-15 10:35 | disposition home or self-care (01) ==
LOC: OB 05-17 07:03
PROVIDERS: PCP Nurse Practitioner Family; Referring Provider Specialist; Visit Provider Specialist
DX: O24.415 Gestational diabetes mellitus in pregnancy, controlled by oral hypoglycemic drugs (principal); O13.3 Gestational [pregnancy-induced] hypertension without significant proteinuria, third trimester; Z3A.36 36 weeks gestation of pregnancy
CPT/HCPCS: 59025; G0378; G0379

== ENCOUNTER 2020-05-18 10:23 | Outpatient (CLI) | payer OTHER, MEDICAID, SELFPAY ==
--- NOTE | 2020-05-18 10:54 | P.TNLD_ITS ---
Visit Information Visit Information Date of evaluation: 05/18/20 Primary OB Provider: Verónica Maravilla Reason for Evaluation: Yes non-stress test non-stress test reason: diabetes and hypertension/pre-eclampsia Vital Signs Vital Signs: Initial blood pressure 140/101. Subsequent blood pressure 138/86 [facility] Medical History Anxiety Depression Endometriosis GERD (gastroesophageal reflux disease) SHIN (nonalcoholic steatohepatitis) (~06/2019) Ovarian cyst UTI (urinary tract infection) Yeast infection Surgical History S/P laparoscopic appendectomy (~2012) S/P laparoscopy (~2015) Family History Mother Hyperlipidemia Father Hypertension Heart disease Diabetes mellitus Grandmother Hyperlipidemia Grandfather Drug addiction Family estrangement Grandmother Cancer Hypertension Grandfather Heart disease Diabetes mellitus Congestive heart failure Family/Other Heart disease Diabetes mellitus Social History marital status: household members: spouse lives independently: Yes pets and animals: Yes (X 1 cat and X 1 dog) education level: high school occupational status: employed (Patient access at [employer]) current occupational exposures/hazards: Yes special jose needs: No Smoking Status: Former smoker (Quit 08/05/2018) Tobacco: How many years used: 3 quit status: quit date established second hand exposure: No alcohol intake: former (pre-pregant : social ) substance use type: does not use Evaluation Evaluation Baseline heart rate: 135 Variability: Moderate (11-25) monitor accelerations: Present monitor decelerations: Absent Category of Tracing: Reactive Status: Category l Diagnosis, Plan/Disposition Final Diagnosis (1) Hypertension affecting in third trimester: Status: Acute (2) Gestational diabetes: Status: Acute Plan/Disposition Plan: Reactive nonstress test. Patient will be evaluated in the office today. OB Disposition: home
== END 2020-05-18 11:00 | disposition home or self-care (01) ==
LOC: LABOR 10:34 → OB 05-19 07:32
PROVIDERS: PCP Nurse Practitioner Family; Referring Provider Specialist; Visit Provider Specialist
DX: O24.419 Gestational diabetes mellitus in pregnancy, unspecified control (principal); O13.3 Gestational [pregnancy-induced] hypertension without significant proteinuria, third trimester; Z3A.36 36 weeks gestation of pregnancy
CPT/HCPCS: 36415; 59025; 82565; 82570; 84156; 84450; 84460; 84520; 84550; 85025; 87653; G0378; G0379

== ENCOUNTER → 2020-05-18 11:48 | Outpatient (CLI) | payer OTHER, MEDICAID, SELFPAY ==
[2020-05-18 13:06] LABS: Add Manual Diff / Slide Review NO; Basophils Absolute Auto 0 /uL (0-100); Basophils Percent Auto 0.3 % (0-2); Eosinophils Absolute Auto 100 /uL (0-450); Eosinophils Percent Auto 0.6 % (2-4); Hemoglobin 11.4 g/dL (12.0-16.0); Lymphocytes Absolute Auto 1300 /uL (1100-4500); Lymphocytes Percent Auto 12.4 % (25-40); Mean Corpuscular HGB Conc 33.4 % (30-36); Mean Corpuscular Volume 86.6 fL (80-100); Monocytes Absolute Auto 600 /uL (0-900); Monocytes Percent Auto 5.3 % (3-14); Neutrophils Absolute Auto 8700 /uL (1500-7000); Neutrophils Percent Auto 81.4 % (50-75); Platelet Count 273 X10^3/uL (150-400); Red Blood Cell Count 3.93 X10^6/uL (4.0-5.2); Red Cell Distribution Width 13.5 % (11.6-14.8); White Blood Cell Count 10.7 X10^3/uL (4.5-11.0)
[2020-05-18 13:35] LABS: Alanine Aminotransferase 21 IU/L (<35); Aspartate Aminotransferase 41 IU/L (14-36); Blood Urea Nitrogen 10 mg/dL (7-17); Estimated Glomerular Filt Rate > 60.0 mL/min (>60); Uric Acid 6.5 mg/dL (2.5-6.2)
[2020-05-18 16:12] LABS: Creatinine Urine Random 91.8 mg/dL; Protein (Total) Urine Random 46 mg/dL (0-12)
[2020-05-19 12:04] LABS: Strep Grp B PCR NEG for Grp B Strep
== END ==
PROVIDERS: PCP Nurse Practitioner Family; Referring Provider Specialist; Visit Provider Specialist
DX: O16.3 Unspecified maternal hypertension, third trimester (principal); Z3A.36 36 weeks gestation of pregnancy
CPT/HCPCS: 36415; 82565; 82570; 84156; 84450; 84460; 84520; 84550; 85025; 87653

== ENCOUNTER 2020-05-21 07:46 | Inpatient (IN) | payer OTHER, MEDICAID, SELFPAY ==
[2020-05-21] VITALS (8 sets, daily range): BP systolic 113–148; BP diastolic 64–98; PULSE 72–98; RESP 16; TEMP 35.6–37; O2SAT 98–99
[2020-05-21] MEDS: LACTATED RINGERS 1,000 ML 100 ML IV ×4 (09:10→17:04)
[2020-05-21 09:27] LABS: Add Manual Diff / Slide Review NO; Basophils Absolute Auto 100 /uL (0-100); Basophils Percent Auto 0.7 % (0-2); Eosinophils Absolute Auto 100 /uL (0-450); Eosinophils Percent Auto 0.9 % (2-4); Hematocrit 34.7 % (36-46); Hemoglobin 11.5 g/dL (12.0-16.0); Lymphocytes Absolute Auto 1400 /uL (1100-4500); Lymphocytes Percent Auto 14.6 % (25-40); Mean Corpuscular HGB Conc 33.3 % (30-36); Mean Corpuscular Hemoglobin 28.7 PG (26-34); Mean Corpuscular Volume 86.4 fL (80-100); Monocytes Absolute Auto 600 /uL (0-900); Monocytes Percent Auto 5.7 % (3-14); Neutrophils Absolute Auto 7600 /uL (1500-7000); Neutrophils Percent Auto 78.1 % (50-75); Platelet Count 264 X10^3/uL (150-400); Red Blood Cell Count 4.02 X10^6/uL (4.0-5.2); Red Cell Distribution Width 13.7 % (11.6-14.8); White Blood Cell Count 9.7 X10^3/uL (4.5-11.0)
[2020-05-21 09:28] LABS: COVID19 - ADMIT (NP swab/PCR) Negative (Negative)
--- NOTE | 2020-05-21 09:34 | PM.PREOP ---
Pre-operative Note COVID-19 COVID-19 status: Negative Result date/Date tested (Pos, Neg/Pending): 05/21/20 Interval Note History & Physical reviewed/Exam performed by Physician: Yes Changes to H&P: No
[2020-05-21 09:52] LABS: Aspartate Aminotransferase 37 IU/L (14-36); Glucose 99 mg/dL (70-100)
--- NOTE | 2020-05-21 09:53 | P.HPOB_ITS ---
OB HPI Date/Time Date of admission: 05/21/20 Date Patient Seen: 05/21/20 Time Patient Seen: 09:54 History of Present Condition Chief complaint: INPT : 1 Para: 0 Estimated Date of Delivery: 06/10/20 Estimated Gestational Age (weeks): 37 Narrative: Margo Hinton is a 24 year old female admitted for primary shelby arean section for persistent breech presentation, preeclampsia with mild features, gestational diabetes controlled on metformin Indications Operative indications ( section): malpresentation Other reason(s) for admission: Preeclampsia with mild features History of Present care: good care, initiated at week # (7), number of visits (12) and pounds weight gain (53) Dating criteria: based on 1st trimester US only Ultrasounds: normal mid trimester US Obstetrical complications: gestational diabetes (On metformin) and preeclampsia (Labile blood pressures, proteinuria, edema) Medical complications: none Preadmission Labs Blood type: A (+) positive -: Antibody screen: negative, GBS status: negative, HBsAG: negative, HIV: negative and RPR/VDLR: negative -: Chlamydia screen: not detected and Gonorrhea screen: not detected -: Rubella: not immune and Varicella: not immune HCAB: reactive 1 hr GTT: 145 3 hr GTT: 1 hr (207), 2 hr (156) and 3 hr (105) Fasting blood glucose: 116 Narrative: Patient's glucose was controlled with metformin Evaluation Evaluation Baseline heart rate: 145 Variability: Moderate (11-25) monitor accelerations: Present Monitor Decelerations: Absent Contraction Frequency (minutes): 0 Category of Tracing: Reactive Status: Category l Laboratory results: Laboratory Tests 05/21/20 05/21/20 05/21/20 08:18 09:10 09:10 WBC 9.7 RBC 4.02 Hgb 11.5 L Hct 34.7 L MCV 86.4 MCH 28.7 MCHC 33.3 RDW 13.7 Plt Count 264 Neut % (Auto) 78.1 H Lymph % (Auto) 14.6 L [place] % (Auto) 5.7 Eos % (Auto) 0.9 L Baso % (Auto) 0.7 Neut # (Auto) 7600 H Lymph # (Auto) 1400 [place] # (Auto) 600 Eos # (Auto) 100 Baso # (Auto) 100 Glucose 99 AST SARS-CoV-2 (PCR) Negative 05/21/20 09:10 WBC RBC Hgb Hct MCV MCH MCHC RDW Plt Count Neut % (Auto) Lymph % (Auto) [place] % (Auto) Eos % (Auto) Baso % (Auto) Neut # (Auto) Lymph # (Auto) [place] # (Auto) Eos # (Auto) Baso # (Auto) Glucose AST 37 H SARS-CoV-2 (PCR) PFSH Medical History Anxiety Depression Endometriosis GERD (gastroesophageal reflux disease) SHIN (nonalcoholic steatohepatitis) (~06/2019) Ovarian cyst UTI (urinary tract infection) Yeast infection Surgical History S/P laparoscopic appendectomy (~2012) S/P laparoscopy (~2015) Family History Mother Hyperlipidemia Father Hypertension Heart disease Diabetes mellitus Grandmother Hyperlipidemia Grandfather Drug addiction Family estrangement Grandmother Cancer Hypertension Grandfather Heart disease Diabetes mellitus Congestive heart failure Family/Other Heart disease Diabetes mellitus Social History marital status: household members: spouse lives independently: Yes pets and animals: Yes (X 1 cat and X 1 dog) education level: high school occupational status: employed (Patient access at [employer]) current occupational exposures/hazards: Yes special jose needs: No Smoking Status: Former smoker Tobacco: How many years used: 3 quit status: quit date established second hand exposure: No alcohol intake: former (pre-pregant : social ) substance use type: does not use Meds Home Medications and Allergies Home Medications Medication Instructions Recorded Confirmed Type omeprazole 40 mg capsule,delayed 40 mg PO DAILY 10/22/19 05/18/20 History release prenat.vits,sea,oqr-agha-tuzwr 1 tab PO DAILY 10/22/19 05/18/20 History blood sugar diagnostic #100 ea 02/26/20 05/18/20 Rx blood-glucose meter #1 ea 02/26/20 05/18/20 Rx lancets #100 ea 02/26/20 05/18/20 Rx metoclopramide HCl 10 mg tablet 10 mg PO Q6H PRN #20 tab 03/19/20 05/18/20 Rx labetalol 100 mg tablet 100 mg PO BID #60 tab 03/25/20 05/18/20 Rx metformin 500 mg tablet 1,000 mg PO DAILY #60 tab 04/19/20 05/18/20 Rx Allergies Allergy/AdvReac Type Severity Reaction Status Date / Time No Known Drug Allergies Allergy Verified 05/21/20 09:42 Review of Systems Review of Systems Narrative: Patient denies headaches, scotomata, epigastric pain. Good movement. No leakage of fluid. No contractions. ROS: Yes All systems reviewed with the patient and are negative except as otherwise documented Exam Vital Signs (past 8 hours): Blood pressure 143/82, pulse of 101, patient is afebrile Narrative Exam Narrative: HEENT exam within normal limits. Lungs are clear to auscultation percussion. Heart is regular rate no S3-S4 murmurs. Fetus is breech, head in the right upper quadrant. Extremities +1 edema, nontender. DTRs are normal. Objective Labs Result Diagrams: 05/21/20 09:10 05/21/20 09:10 Labs: Laboratory Results - last 24 hr 05/21/20 05/21/20 05/21/20 08:18 09:10 09:10 WBC 9.7 RBC 4.02 Hgb 11.5 L Hct 34.7 L MCV 86.4 MCH 28.7 MCHC 33.3 RDW 13.7 Plt Count 264 Neut % (Auto) 78.1 H Lymph % (Auto) 14.6 L [place] % (Auto) 5.7 Eos % (Auto) 0.9 L Baso % (Auto) 0.7 Neut # (Auto) 7600 H Lymph # (Auto) 1400 [place] # (Auto) 600 Eos # (Auto) 100 Baso # (Auto) 100 Glucose 99 AST SARS-CoV-2 (PCR) Negative 05/21/20 09:10 WBC RBC Hgb Hct MCV MCH MCHC RDW Plt Count Neut % (Auto) Lymph % (Auto) [place] % (Auto) Eos % (Auto) Baso % (Auto) Neut # (Auto) Lymph # (Auto) [place] # (Auto) Eos # (Auto) Baso # (Auto) Glucose AST 37 H SARS-CoV-2 (PCR) Assessment and Plan Assessment and Plan Assessment and Plan narrative: 37 week gestation complicated by persistent breech presentation, gestational diabetes under control with metformin, worsening preeclampsia with mild features for primary low-transverse section
--- NOTE | 2020-05-21 09:57 | SUR.OPER ---
Supine on Padded OR bed, head on pillow, safety belt at thigh, arms secured on padded arm boards at <90 degrees abduction. Bump under right buttock. Legs uncrossed with pillow under knees, gel pad to heels, tape over blanket to lower legs.
[2020-05-21] MEDS: CEFAZOLIN 2 GM/100 ML FROZ.PIGGY IV (10:07)
--- NOTE | 2020-05-21 10:33 | SUR.OPER ---
LIVE MALE BORN AT 1019
--- NOTE | 2020-05-21 11:22 | PM.OP.1 ---
Operative Date/Time/Diagnoses Date of procedure: 05/21/20 Time of procedure: 11:22 Pre-op diagnosis: 37 week gestation with mild preeclampsia, persistent breech presentation, gestational diabetes controlled with metformin for primary low-transverse section Post-op diagnosis: same Procedure & Clinicians Procedure: Primary low-transverse section Same procedure as scheduled: Yes Indications: Persistent breech presentation, worsening mild preeclampsia, gestational diabetes controlled by metformin Surgeon: Verónica Maravilla Inspector Eyeglass: Starr Harvey Click Yes if Unassisted: No Anesthesia Type: Spinal Operative Notes Findings: Normal tubes, ovaries, uterus. Viable male infant weighing 6 lb 9.7 oz, 2997 g, 19.2 in long, Apgars of 9 and 9 Closure Type: primary Specimen(s): none sent Applied: catheter (Chen) Estimated Blood Loss (mL): 300 Blood products transfused: none Procedure in detail: The patient was brought to the operating room where she underwent for anesthesia. She was placed in a supine position with a left lateral tilt. A Chen catheter was placed. Pulsatile stockings were placed and functional throughout the case. 2 g of Ancef were given IV prior to the incision. Warming was in place. The patient was prepped and draped in usual sterile fashion. A low transverse incision was made with a scalpel and the incision was carried down to the fascial layer which was incised transversely with scissors. The assistant boys track coach did her side of the incision. The midline attachments are superiorly and inferiorly. Some bleeding was controlled Bovie. The rectus muscles were in the midline and the peritoneal incision was made with no damage to internal structures. The peritoneum was incised and superiorly and inferiorly. The incision was stretched with the surgeon and assistant boys track coach placing traction. Bladder blade was placed and a bladder flap was developed and the bladder held away from the lower uterine segment. An incision was made in the uterus with the scalpel and the incision was extended with stretching. The buttocks was elevated out of the abdomen and with fundal pressure by the assistant boys track coach. A moistened towel was placed around the infant and the infant delivered to the shoulders which were rotated to allow delivery of the arms. With fundal pressure the head delivered quickly. The infant was bulb suctioned for clear fluid. Delayed cord clamping for about 45 seconds and then the viable male was handed off to the warmer. Cord blood was collected. The placenta delivered spontaneously with traction. The uterus was cleaned with clean laps. The uterine incision was closed in 2 layers of 0 chromic suture the first a running locking layer the second an imbricating layer. The assistant boys track coach was helping to expose the incision. The bladder peritoneum was repaired with 2-0 Vicryl suture. The gutters were cleaned of any remaining fluids and ovaries and tubes were observed to be normal. Adequate hemostasis was noted. The perineum was closed with 2-0 Vicryl suture. The fascia layer was closed with 0 Vicryl suture with 2 stitches. The assistant boys track coach repairing half the incision with helping to retract and expose the incision for the other half. The incision was irrigated and adequate hemostasis noted. The incision was closed with interrupted 3-0 Vicryl sutures and then a subcuticular stitch of 4-0 Vicryl suture. Steri-Strips were placed. The uterus was massaged to remove any clots. The patient went to recovery room in good condition. Counts of instruments and sponges were correct. Dr. Harvey was present throughout the case to assist with retraction, fundal pressure to deliver the , and suturing half the fascia. Complications: none Post-operative Condition: stable Disposition: other ( Center) Plan for aftercare: Routine post section with monitoring for worsening preeclampsia.
[2020-05-21] MEDS: ONDANSETRON 4 MG/2 ML INJ IV ×2 (12:12→19:54)
[2020-05-21] MEDS: KETOROLAC 30 MG/ML VIAL IV ×3 (12:13→23:58)
[2020-05-21] MEDS: diphenhydrAMINE 25 MG TABLET PO (14:00)
[2020-05-21] MEDS: METOCLOPRAMIDE HCL 10 MG TABLET PO (15:26)
[2020-05-21] MEDS: METOCLOPRAMIDE 10 MG/2 ML INJ 5 MG IV (16:26)
[2020-05-21] MEDS: diphenhydrAMINE 50 MG/ML VIAL 25 MG IV (16:34)
[2020-05-21] MEDS: LABETALOL 100 MG TABLET PO ×2 (17:43→21:26)
[2020-05-21] MEDS: DOCUSATE 250 MG CAPSULE PO (21:25)
[2020-05-22] MEDS: KETOROLAC 30 MG/ML VIAL IV (06:09)
[2020-05-22 06:29] LABS: Add Manual Diff / Slide Review NO; Basophils Absolute Auto 0 /uL (0-100); Basophils Percent Auto 0.3 % (0-2); Eosinophils Absolute Auto 100 /uL (0-450); Eosinophils Percent Auto 0.6 % (2-4); Hematocrit 25.8 % (36-46); Hemoglobin 8.7 g/dL (12.0-16.0); Lymphocytes Absolute Auto 1300 /uL (1100-4500); Lymphocytes Percent Auto 13.9 % (25-40); Mean Corpuscular HGB Conc 33.6 % (30-36); Mean Corpuscular Hemoglobin 29.4 PG (26-34); Mean Corpuscular Volume 87.6 fL (80-100); Monocytes Absolute Auto 900 /uL (0-900); Monocytes Percent Auto 8.9 % (3-14); Neutrophils Absolute Auto 7400 /uL (1500-7000); Neutrophils Percent Auto 76.3 % (50-75); Platelet Count 195 X10^3/uL (150-400); Red Blood Cell Count 2.95 X10^6/uL (4.0-5.2); Red Cell Distribution Width 13.7 % (11.6-14.8); White Blood Cell Count 9.7 X10^3/uL (4.5-11.0)
[2020-05-22 06:33] LABS: Alanine Aminotransferase 17 IU/L (<35); Albumin 2.9 g/dL (3.5-5.0); Albumin Globulin Ratio 1.1 (1.0-2.8); Alkaline Phosphatase 92 U/L (38-126); Aspartate Aminotransferase 33 IU/L (14-36); Bilirubin Total 0.1 mg/dL (0.2-1.3); Bilirubin Unconjugated 0.2 mg/dL (0.0-1.1); Globulin 2.6 g/dL (1.7-4.1); HEMOLYSIS < 15 (0-50); Total Protein 5.5 g/dL (6.3-8.2)
[2020-05-22] MEDS: ACETAMINOPHEN 325 MG TABLET 650 MG PO ×3 (07:10→18:22)
[2020-05-22] MEDS: METOCLOPRAMIDE HCL 10 MG TABLET PO (08:07)
[2020-05-22] MEDS: DOCUSATE 250 MG CAPSULE PO ×2 (09:04→20:24)
[2020-05-22 09:06] VITALS: BP 124/84; PULSE 94
[2020-05-22] MEDS: LABETALOL 100 MG TABLET PO ×2 (09:06→20:24)
--- NOTE | 2020-05-22 09:32 | PM.OBPN.1 ---
Subjective - OB Subjective Patient comments: no complaints [place] baby status: doing well Pemberton feeding status: exclusively breast feeding Narrative: This patient is POD#1 s/p scheduled primary section at 37 weeks for preeclampsia without severe features in the setting of breech presentation and GDMA2. The patient's blood pressures are well controlled today on 100mg labetalol PO BID, and she denies PIH symptoms. She is meeting postoperative goals including ambulating, tolerating PO, passing flatus, and mild lochia. A voiding trial is in progress. Date Patient Seen: 05/22/20 Time Patient Seen: 09:35 Exam Vital Signs (past 8 hours): 120s-140s/80s-90s Oxygen Delivery Method Room Air Oxygen Flow Rate 0 Const General: cooperative, healthy appearing and comfortable Resp Effort & Inspection: normal respiratory effort Auscultation: clear to auscultation bilaterally Cardio Rate: regular rate Rhythm: regular rhythm GI Inspection: incision (c/d/i) and large pannus Palpation: soft and No tender Extrem General: normal to inspection (2+ LE edema) Objective Labs Result Diagrams: 05/22/20 06:06 05/21/20 09:10 Labs: Laboratory Results - last 24 hr 05/21/20 05/21/20 05/21/20 09:10 09:10 09:10 WBC RBC Hgb Hct MCV MCH MCHC RDW Plt Count Neut % (Auto) Lymph % (Auto) [place] % (Auto) Eos % (Auto) Baso % (Auto) Neut # (Auto) Lymph # (Auto) [place] # (Auto) Eos # (Auto) Baso # (Auto) Glucose 99 Total Bilirubin Conjugated Bilirubin Unconjugated Bilirubin AST 37 H ALT Alkaline Phosphatase Total Protein Albumin Globulin Albumin/Globulin Ratio Blood Type A Positive Antibody Screen Negative 05/22/20 05/22/20 06:06 06:06 WBC 9.7 RBC 2.95 L Hgb 8.7 L Hct 25.8 L MCV 87.6 MCH 29.4 MCHC 33.6 RDW 13.7 Plt Count 195 Neut % (Auto) 76.3 H Lymph % (Auto) 13.9 L [place] % (Auto) 8.9 Eos % (Auto) 0.6 L Baso % (Auto) 0.3 Neut # (Auto) 7400 H Lymph # (Auto) 1300 [place] # (Auto) 900 Eos # (Auto) 100 Baso # (Auto) 0 Glucose Total Bilirubin 0.1 L Conjugated Bilirubin 0.0 Unconjugated Bilirubin 0.2 AST 33 ALT 17 Alkaline Phosphatase 92 Total Protein 5.5 L Albumin 2.9 L Globulin 2.6 Albumin/Globulin Ratio 1.1 Blood Type Antibody Screen Assessment & Plan Plan day: 1 plan OB: routine postop care Comments: Patient is recovering well and for routine care. Time Spent With Patient Time: Total time spent is greater than 50% in coordination of care (as documented) at patient's floor/unit and/or counseling patient: Time with patient: 15-24 minutes
[2020-05-22 12:20] VITALS: TEMP 36.4
[2020-05-22] MEDS: IBUPROFEN 600 MG TABLET PO ×2 (12:20→18:21)
[2020-05-22 15:38] VITALS: TEMP 36.2
[2020-05-22] MEDS: OXYCODONE IR 5 MG TABLET PO (15:38)
[2020-05-22 16:00] VITALS: BP 130/89; PULSE 101; RESP 16; TEMP 36.5
[2020-05-22 20:24] VITALS: BP 142/101; PULSE 94
[2020-05-22] MEDS: OXYCODONE IR 10 MG TABLET PO (20:24)
[2020-05-23] MEDS: ACETAMINOPHEN 325 MG TABLET 650 MG PO ×3 (00:19→12:27)
[2020-05-23] MEDS: OXYCODONE IR 10 MG TABLET PO ×2 (00:19→04:52)
[2020-05-23] MEDS: IBUPROFEN 600 MG TABLET PO ×3 (00:19→12:26)
[2020-05-23] MEDS: LABETALOL 100 MG TABLET PO (08:52)
[2020-05-23] MEDS: DOCUSATE 250 MG CAPSULE PO (08:53)
--- NOTE | 2020-05-23 08:58 | PM.OBDS.1 ---
Discharge Providers Provider Date of admission: 05/21/20 07:46 Discharge Date: 05/23/20 Primary care physician: ANAYELI Soto Consults: 05/21/20 11:50 Consult to Chemical Plant Operator Supervisor Routine Comment: Discharge provider: Starr Harvey MD Summary Hospital Course Date Patient Seen: 05/23/20 Time Patient Seen: 08:40 Diagnoses: preeclampsia without severe features, GDMA2, breech presentation, 37weeks gestation Hospital Course: This patient was admitted for a scheduled primary section for breech presentation in the setting of preeclampsia without severe features and GDM A2. The patient's surgery was uncomplicated, and she did well postoperatively with decreasing blood pressures well controlled on labetalol 100 mg b.i.d.. The patient was meeting all postoperative goals appropriately, and was discharged home with precautions on postoperative day 2. Peripartum Data Delivery Method: Section Procedures: Primary section complications: none 1: Gender: Male Disposition of : home Status at Discharge Cognitive/behavioral status at discharge: oriented Functional status at discharge: independent ambulation Overall status at discharge: patient is progressing back to baseline Time Spent with Patient Time attestation: Total time spent providing and/or coordinating discharge services: Time spent: Less than 30 minutes Objective Labs Result Diagrams: 05/22/20 06:06 05/21/20 09:10 Exam Vital Signs (past 8 hours): 120s-130s/70s-80s Oxygen Delivery Method Room Air Oxygen Flow Rate 0 Narrative Exam Narrative: Patient resting in bed with . Reports ambulating, copious voiding, passing flatus, mild lochia, good pain control. Tolerating p.o., no headaches, visual changes, chest pain. Const General: cooperative and comfortable Resp Effort & Inspection: normal respiratory effort Auscultation: clear to auscultation bilaterally Cardio Rate: regular rate Rhythm: regular rhythm GI Inspection: incision (Covered by Aquacel, clean, dry, intact) and large pannus Palpation: soft and No tender Extrem General: normal to inspection (1+ lower extremity edema, improved since yesterday) Discharge Plan Discharge Plan Patient Disposition: Home Discharge orders & Medications Prescriptions: New oxycodone 5 mg tablet 5 mg PO Q6H PRN (Reason: pain) Qty: 20 RF: 0 ibuprofen 600 mg tablet 600 mg PO Q6H PRN (Reason: pain) Qty: 20 RF: 1 acetaminophen [Tylenol] 325 mg tablet 650 mg PO Q6H PRN (Reason: pain) Qty: 20 RF: 1 Continued labetalol 100 mg tablet 100 mg PO BID Qty: 60 RF: 0 Discontinued (DME) blood-glucose meter [Blood Glucose Monitoring] Kit See Rx Instructions miscellaneous .MEDSUPPLY Qty: 1 RF: 0 (DME) Blood Glucose Test Strip See Rx Instructions miscellaneous .MEDSUPPLY Qty: 100 RF: 4 (DME) lancets [Comfort Lancets] Misc See Rx Instructions .MEDSUPPLY Qty: 100 RF: 4 metoclopramide HCl [Reglan] 10 mg tablet 10 mg PO Q6H PRN (Reason: Persistent Headache in pregancy) Qty: 20 RF: 1 metformin 500 mg tablet 1,000 mg PO DAILY Qty: 60 RF: 3 omeprazole 40 mg capsule,delayed release(DR/EC) 40 mg PO DAILY RF: 0 prenat.vits,sea,[id number] Tablet 1 tab PO DAILY RF: 0 Follow up/Referrals: Chel Stanton ARNP [Primary Care Provider] - Verónica Maravilla MD [Physician] - 06/02/20 12:15 pm ([place] [facility]) Diet/Activity/Treatments Diet: Regular Skin/Wound/Dressing Care Report to your healthcare provider any signs of infection, such as:: chills, fever, night sweats, increased pain, unusual drainage and unusual redness Visit Report/Discharge Packet Instructions: DI for Discharge Data Primary Care Provider: Chel Stanton
[2020-05-23] MEDS: MEASLES,MUMPS,RUBELLA VACC/PF 0.5 ML VIAL SUBCUT (11:40)
[2020-05-23] MEDS: OXYCODONE IR 5 MG TABLET PO (12:27)
== END 2020-05-23 12:43 | disposition home or self-care (01) | DRG 788 ==
PROVIDERS: Admitting Provider Specialist; PCP Nurse Practitioner Family; Referring Provider Specialist; Visit Provider Specialist
PROC: 10D00Z1 Extraction of Products of Conception, Low, Open Approach (ICD-10-PCS; CPT 59514; principal; 2020-05-21 09:45)
DX: O14.04 Mild to moderate pre-eclampsia, complicating childbirth (principal); Z3A.37 37 weeks gestation of pregnancy; Z37.0 Single live birth; O24.425 Gestational diabetes mellitus in childbirth, controlled by oral hypoglycemic drugs; O64.1XX0 Obstructed labor due to breech presentation, not applicable or unspecified; Z20.822 Contact with and (suspected) exposure to COVID-19
CPT/HCPCS: 36415; 59510; 59514; 80076; 82947; 84450; 85025; 86850; 86900; 86901; 87635; C9803; J0690; J1200; J1885; J2274; J2405; J2590; J2765